=== PATIENT | female | born 1940 | race Caucasian/White ===

== ENCOUNTER → 2017-04-14 | Outpatient (CLI) | payer MEDICARE ==
[2017-04-14 11:52] LABS: Non-African American GFR(MDRD) >60 (>60 ml/min/1.73 sqM)
== END ==
LOC: LABWHC1 10:42
PROVIDERS: ATTEND Family Medicine
DX: Z13.9 Encounter for screening, unspecified (principal)
CPT/HCPCS: 36415; 82565

== ENCOUNTER → 2017-04-16 | Outpatient (CLI) | payer MEDICARE ==
--- NOTE | 2017-04-16 12:53 | MR ---
EXAMINATION TYPE: MR neck wo/w con DATE OF EXAM: 04/16/2017 COMPARISON: NONE HISTORY: Localized swelling, mass and lump, neck rt side, Marked area of interest, Patient has histor y of Rheumatoid Arthritis CONTRAST: Standard multiplanar, multisequence MRI departmental protocol utilizing 10 mL intravenous MultiHance gadolinium contrast. FINDINGS: A vitamin E marker is placed at area of clinical concern posterior right neck on axial imag e 24 and coronal image 17. No worrisome solid or cystic mass or fluid collection is seen at this leve l. No suspicious enhancement is seen. Patient has very little subcutaneous fat making evaluation subo ptimal. Visualized portion of brain parenchyma shows posterior CSF prominence could reflect arachnoid cyst. There is heterogeneous slightly enlarged thyroid gland particularly right thyroid lobe. Correlate for diffuse goiter. There is underlying scoliosis in the cervical thoracic spine with exaggerated curvature in the upper thoracic levels. IMPRESSION: No suspicious finding is seen to account for patient's symptoms.
== END | disposition home or self-care (01) ==
LOC: RADMRIMAIN 11:18
PROVIDERS: ATTEND Family Medicine
DX: R22.1 Localized swelling, mass and lump, neck (principal)
CPT/HCPCS: 70543; A9577

== ENCOUNTER 2017-12-11 14:17 | Emergency (ER) | payer MEDICARE ==
[2017-12-11 14:34] VITALS: RESP 16
--- NOTE | 2017-12-11 15:22 | ED ---
Neuro HPI - General Chief Complaint: Neuro Symptoms/Deficit Stated Complaint: Facial Droop Source: patient Mode of arrival: wheelchair Limitations: no limitations - History of Present Illness Is the patient presenting with stroke symptoms?: Yes Last Known Well Date: 12/08/17 Initial Comments: Patient is a 77-year-old female presenting for neurologic complaints. Patient states that 2 weeks ago she developed shingles and was started on shingles. Approximately 3 days ago, she thinks that she started having right-sided facial droop. She presents today because she was concerned because she states that she could not open her left eye and this morning, she was drinking coffee and she noted that the coffee was falling out of her mouth. She states that she has numbness on the left side of her face but the facial droop is on the right side. She also states that she has no obvious trouble speaking but feels like her tongue and left side of her face were numb. She also admits a very mild headache but no nausea/vomiting/diarrhea or chest pain or shortness breath. Location: speech, right face, dysarthria History of same: No Place: home Quality: weak, numb Improves With: none Worsens With: none On Anticoagulants: No Context: sudden onset Associated Symptoms: denies other symptoms Treatments Prior to Arrival: none - Related Data Home Medications: Home Medications Medication Instructions Recorded Confirmed Cholecalciferol [Vitamin D3] 1,000 units PO DAILY 11/20/14 12/11/17 Fish Oil/Dha/Epa [Fish Oil 1,200 1 tab PO DAILY 11/20/14 12/11/17 mg Fish Oil] Magnesium 200 mg PO DAILY 11/20/14 12/11/17 Ubidecarenone [Co Q-10] 1 tab PO DAILY 11/20/14 12/11/17 Acetylcysteine [Nac] 500 mg PO DAILY 12/11/17 12/11/17 Alpha Lipoic Acid 50 mg PO DAILY 12/11/17 12/11/17 Gabapentin [Neurontin] See Taper PO DIRECTED 12/11/17 12/11/17 Allergies/Adverse Reactions: Allergies Allergy/AdvReac Type Severity Reaction Status Date / Time Latex, Natural Rubber Allergy Rash/Hives Verified 12/11/17 15:49 nickel Allergy Rash/Hives Verified 12/11/17 15:49 Review of Systems ROS Statement: Those systems with pertinent positive or pertinent negative responses have been documented in the HPI. Constitutional: Negative for chills, fatigue and fever. HENT: Negative for congestion. Respiratory: Negative for chest tightness, shortness of breath and wheezing. Cardiovascular: Negative for chest pain and palpitations. Gastrointestinal: Negative for abdominal pain. Negative for abdominal distention , diarrhea, nausea and vomiting. Genitourinary: Negative for dysuria. Musculoskeletal: Negative for back pain, neck pain and neck stiffness. Skin: Negative for color change. Neurological: Negative for dizziness, speech difficulty, weakness and light- headedness. Positive for right sided facial droop. Positive for dysarthria. Negative for headache Psychiatric/Behavioral: Negative for agitation and confusion. The patient is not nervous/anxious. ROS Other: All systems not noted in ROS Statement are negative. General Exam - General Exam Comments Initial Comments: Physical Exam Constitutional: Pt is oriented to person, place, and time. Pt appears well- developed and well-nourished. No distress. HENT: Head: Normocephalic and atraumatic. Eyes: EOM are normal. Neck: Normal range of motion. Neck supple. Cardiovascular: Normal rate, regular rhythm, S1 normal, S2 normal and normal heart sounds. Exam reveals no gallop and no friction rub. No murmur heard. Pulmonary/Chest: Effort normal and breath sounds normal. No tachypnea and no bradypnea. No respiratory distress. No wheezes or rales noted. Abdominal: Soft. Bowel sounds are normal. Pt exhibits no shifting dullness, no distension, no pulsatile liver, no fluid wave, no abdominal bruit and no ascites. There is no tenderness. There is no rigidity, no rebound, no guarding, no tenderness at McBurney's point and negative Humphreys's sign. Musculoskeletal: Normal range of motion. Neurological: Pt is alert and oriented to person, place, and time. There is drooping of the right forehead and right lower face. There is no evidence of dysarthria. Remaining cranial nerves are intact. There is no decreased strength of opening of the left eyelid but there is decreased strength of opening the right Skin: Skin is warm and dry. No rash noted. Pt is not diaphoretic. No erythema. No pallor. Psychiatric: Pt has a normal mood and affect. Pt behavior is normal. Thought content normal. Limitations: no limitations Stroke MDM - Lab Data Result diagrams: 12/11/17 15:41 12/11/17 15:41 Lab Results 12/11/17 12/11/17 12/11/17 Range/Units 15:41 15:41 15:41 WBC 7.8 (3.8-10.6) k/uL RBC 4.78 (3.80-5.40) m/uL Hgb 14.1 (11.4-16.0) gm/dL Hct 43.6 (34.0-46.0) % MCV 91.2 (80.0-100.0) fL MCH 29.5 (25.0-35.0) pg MCHC 32.3 (31.0-37.0) g/dL RDW 13.0 (11.5-15.5) % Plt Count 312 (150-450) k/uL Neutrophils % 71 % Lymphocytes % 21 % Monocytes % 4 % Eosinophils % 2 % Basophils % 1 % Neutrophils # 5.5 (1.3-7.7) k/uL Lymphocytes # 1.6 (1.0-4.8) k/uL Monocytes # 0.3 (0-1.0) k/uL Eosinophils # 0.1 (0-0.7) k/uL Basophils # 0.0 (0-0.2) k/uL PT (9.0-12.0) sec INR (<1.2) APTT (22.0-30.0) sec Sodium 142 (137-145) mmol/L Potassium 4.6 (3.5-5.1) mmol/L Chloride 103 (98-107) mmol/L Carbon Dioxide 28 (22-30) mmol/L Anion Gap 11 mmol/L BUN 17 (7-17) mg/dL Creatinine 0.70 (0.52-1.04) mg/dL Est GFR (MDRD) Af Amer >60 (>60 ml/min/1.73 sqM) Est GFR (MDRD) Non-Af >60 (>60 ml/min/1.73 sqM) Glucose 100 H (74-99) mg/dL Calcium 9.7 (8.4-10.2) mg/dL Total Bilirubin 0.5 (0.2-1.3) mg/dL AST 19 (14-36) U/L ALT 17 (9-52) U/L Alkaline Phosphatase 74 (38-126) U/L Total Creatine Kinase 27 L (30-135) U/L CK-MB (CK-2) 0.4 (0.0-2.4) ng/mL CK-MB (CK-2) Rel Index 1.5 Troponin I <0.012 (0.000-0.034) ng/mL Total Protein 7.0 (6.3-8.2) g/dL Albumin 4.2 (3.5-5.0) g/dL 12/11/17 Range/Units 15:41 WBC (3.8-10.6) k/uL RBC (3.80-5.40) m/uL Hgb (11.4-16.0) gm/dL Hct (34.0-46.0) % MCV (80.0-100.0) fL MCH (25.0-35.0) pg MCHC (31.0-37.0) g/dL RDW (11.5-15.5) % Plt Count (150-450) k/uL Neutrophils % % Lymphocytes % % Monocytes % % Eosinophils % % Basophils % % Neutrophils # (1.3-7.7) k/uL Lymphocytes # (1.0-4.8) k/uL Monocytes # (0-1.0) k/uL Eosinophils # (0-0.7) k/uL Basophils # (0-0.2) k/uL PT 10.1 (9.0-12.0) sec INR 1.0 (<1.2) APTT 23.6 (22.0-30.0) sec Sodium (137-145) mmol/L Potassium (3.5-5.1) mmol/L Chloride (98-107) mmol/L Carbon Dioxide (22-30) mmol/L Anion Gap mmol/L BUN (7-17) mg/dL Creatinine (0.52-1.04) mg/dL Est GFR (MDRD) Af Amer (>60 ml/min/1.73 sqM) Est GFR (MDRD) Non-Af (>60 ml/min/1.73 sqM) Glucose (74-99) mg/dL Calcium (8.4-10.2) mg/dL Total Bilirubin (0.2-1.3) mg/dL AST (14-36) U/L ALT (9-52) U/L Alkaline Phosphatase (38-126) U/L Total Creatine Kinase (30-135) U/L CK-MB (CK-2) (0.0-2.4) ng/mL CK-MB (CK-2) Rel Index Troponin I (0.000-0.034) ng/mL Total Protein (6.3-8.2) g/dL Albumin (3.5-5.0) g/dL - Medical Decision Making Laboratory studies revealed that there is no significant electrolyte derangements and glucose was 100. Cardiac evaluation also showed the troponin was unremarkable and EKG was in significant for acute pathology. However, the patient's symptoms are concerning as she is having new left-sided facial symptoms but because she is out of the window for TPA, stroke was not initiated. 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 Per radiology, CT of the head showed: Focal hypodensity in the ventral Mattila likely secondary to the skull base artifact and a subacute to chronic brainstem infarct is considerably less likely. Explained all labs and diagnostic test results and that we will admit patient to hospital. Pt is agreeable to plan and case has been discussed with Dr. Chambers and they agree to accept the pt. 12/11/17 15:57 EKG shows normal sinus rhythm with a heart rate of 74 bpm. TX interval 1:30, QRS 86, QTC 448. There is no significant ST depressions or elevations there is non-specific T wave inversion in V1. Past Medical History Past Medical History: Asthma, Rheumatoid Arthritis (RA) Additional Past Medical History / Comment(s): constant "sick feeling in stomach " History of Any Multi-Drug Resistant Organisms: C-DIFF Date of last positivie culture/infection: 06/2014 MDRO Source:: CDIFF Past Surgical History: Orthopedic Surgery Additional Past Surgical History / Comment(s): bilateral feet surgery from horse riding accident, hand operation related to rheumatoid nodule, left arm fx- plate, I&D, Past Anesthesia/Blood Transfusion Reactions: No Reported Reaction Past Psychological History: No Psychological Hx Reported Smoking Status: Former smoker Past Alcohol Use History: None Reported Past Drug Use History: None Reported - Past Family History Mother Family Medical History: No Reported History Course Vital Signs 12/11/17 12/11/17 12/11/17 14:23 15:00 16:36 Temperature 97.5 F L Pulse Rate 82 75 70 Respiratory 16 16 16 Rate Blood Pressure 142/86 126/74 140/78 O2 Sat by Pulse 99 99 100 Oximetry Disposition Clinical Impression: Facial weakness Disposition: ADMITTED IP TO THIS [facility] Condition: Good Referrals: Ramone Roberts DO [Primary Care Provider] - 1-2 days Decision to Admit Reason: Admit from EC Decision Date: 12/11/17 Decision Time: 17:03
[2017-12-11 16:00] LABS: Basophils % (A) 1 %; Eosinophils # (A) 0.1 k/uL (0-0.7); Eosinophils % (A) 2 %; HCT 43.6 % (34.0-46.0); HGB 14.1 gm/dL (11.4-16.0); Lymphocytes # (A) 1.6 k/uL (1.0-4.8); Lymphocytes % (A) 21 %; MCH 29.5 pg (25.0-35.0); MCHC 32.3 g/dL (31.0-37.0); MCV 91.2 fL (80.0-100.0); Mean Platelet Volume 7.3; Monocytes # (A) 0.3 k/uL (0-1.0); Monocytes % (A) 4 %; Neutrophils # (A) 5.5 k/uL (1.3-7.7); Neutrophils % (A) 71 %; Platelet Count 312 k/uL (150-450); RBC 4.78 m/uL (3.80-5.40); WBC 7.8 k/uL (3.8-10.6)
--- NOTE | 2017-12-11 16:12 | CT ---
EXAMINATION TYPE: CT brain wo con DATE OF EXAM: 12/11/2017 COMPARISON: NONE HISTORY: 77-year-old female Deficits, Right sided facial droop without weakness TECHNIQUE: Examination was done in axial plane without intravenous contrast. Coronal and sagittal r econstructions performed. CT DLP: 1144.7 mGycm Automated exposure control for dose reduction was used. FINDINGS: There is no evidence of acute intracranial hemorrhage, acute ischemic changes, mass, mass-effect, or extra-axial fluid collection. There is no effacement of cerebral sulci or basal subarachnoid cister ns. There is no hydrocephalus. There is no midline shift. Walker-white matter distinction is preserv ed. 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 The cerebellar tonsils are identified. Patchy hypodensity within the ventral medulla on axial image 11 probably skull base artifact. Promine nt perivascular space or lacunar infarct in the left basal ganglia. Paranasal sinuses and mastoid air cells are well pneumatized. Orbits and globes are intact. IMPRESSION: 1. Focal hypodensity in the ventral medulla likely secondary to skull base artifact. A subacute to ch ronic brainstem infarct is considered less likely. If indicated, MRI could be performed. 2. Incidental large megacisterna magna. 3. Otherwise, no acute intracranial abnormality seen. 2.
[2017-12-11 16:15] LABS: ALT 17 U/L (9-52); AST 19 U/L (14-36); Albumin 4.2 g/dL (3.5-5.0); Alkaline Phosphatase 74 U/L (38-126); Anion Gap 11 mmol/L; Blood Urea Nitrogen 17 mg/dL (7-17); Calcium 9.7 mg/dL (8.4-10.2); Carbon Dioxide 28 mmol/L (22-30); Chloride 103 mmol/L (98-107); Creatine Kinase 27 U/L (30-135); Glucose 100 mg/dL (74-99); Potassium 4.6 mmol/L (3.5-5.1); Sodium 142 mmol/L (137-145); Total Bilirubin 0.5 mg/dL (0.2-1.3)
[2017-12-11 16:26] LABS: Creatine Kinase MB 0.4 ng/mL (0.0-2.4); Troponin I <0.012 ng/mL (0.000-0.034)
[2017-12-11 16:35] LABS: Partial Thromboplastin Time 23.6 sec (22.0-30.0); Prothrombin Time 10.1 sec (9.0-12.0)
[2017-12-11] MEDS ORDERED: NALOXONE 0.4 MG/ML 1 ML VIAL IV PRN (17:04)
[2017-12-11] MEDS ORDERED: ASPIRIN 325 MG TAB PO STA (17:08)
--- NOTE | 2017-12-11 18:01 | ED ---
Medical Decision Making - Medical Decision Making Patient was reevaluated by myself at 5:40 PM today and the patient states that the problem appears to be right-sided. Patient also states that she would like to go home and she is sure that this is not a stroke.. She states that she drank a drink of water and that the water was coming out of her right side of her mouth and on her left,. Patient was evaluated bedside by Dr. 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 Physical exam findings of right-sided upper and lower facial droop are consistent with this and patient now denies any of the symptoms are on the left side. It is felt that the patient is stable to be discharged home with close follow-up to urology. Patient will be given a prescription for steroids as well as antivirals. - Lab Data Result diagrams: 12/11/17 15:41 12/11/17 15:41 Lab Results 12/11/17 12/11/17 12/11/17 Range/Units 15:41 15:41 15:41 WBC 7.8 (3.8-10.6) k/uL RBC 4.78 (3.80-5.40) m/uL Hgb 14.1 (11.4-16.0) gm/dL Hct 43.6 (34.0-46.0) % MCV 91.2 (80.0-100.0) fL MCH 29.5 (25.0-35.0) pg MCHC 32.3 (31.0-37.0) g/dL RDW 13.0 (11.5-15.5) % Plt Count 312 (150-450) k/uL Neutrophils % 71 % Lymphocytes % 21 % Monocytes % 4 % Eosinophils % 2 % Basophils % 1 % Neutrophils # 5.5 (1.3-7.7) k/uL Lymphocytes # 1.6 (1.0-4.8) k/uL Monocytes # 0.3 (0-1.0) k/uL Eosinophils # 0.1 (0-0.7) k/uL Basophils # 0.0 (0-0.2) k/uL PT (9.0-12.0) sec INR (<1.2) APTT (22.0-30.0) sec Sodium 142 (137-145) mmol/L Potassium 4.6 (3.5-5.1) mmol/L Chloride 103 (98-107) mmol/L Carbon Dioxide 28 (22-30) mmol/L Anion Gap 11 mmol/L BUN 17 (7-17) mg/dL Creatinine 0.70 (0.52-1.04) mg/dL Est GFR (MDRD) Af Amer >60 (>60 ml/min/1.73 sqM) Est GFR (MDRD) Non-Af >60 (>60 ml/min/1.73 sqM) Glucose 100 H (74-99) mg/dL Calcium 9.7 (8.4-10.2) mg/dL Total Bilirubin 0.5 (0.2-1.3) mg/dL AST 19 (14-36) U/L ALT 17 (9-52) U/L Alkaline Phosphatase 74 (38-126) U/L Total Creatine Kinase 27 L (30-135) U/L CK-MB (CK-2) 0.4 (0.0-2.4) ng/mL CK-MB (CK-2) Rel Index 1.5 Troponin I <0.012 (0.000-0.034) ng/mL Total Protein 7.0 (6.3-8.2) g/dL Albumin 4.2 (3.5-5.0) g/dL 12/11/17 Range/Units 15:41 WBC (3.8-10.6) k/uL RBC (3.80-5.40) m/uL Hgb (11.4-16.0) gm/dL Hct (34.0-46.0) % MCV (80.0-100.0) fL MCH (25.0-35.0) pg MCHC (31.0-37.0) g/dL RDW (11.5-15.5) % Plt Count (150-450) k/uL Neutrophils % % Lymphocytes % % Monocytes % % Eosinophils % % Basophils % % Neutrophils # (1.3-7.7) k/uL Lymphocytes # (1.0-4.8) k/uL Monocytes # (0-1.0) k/uL Eosinophils # (0-0.7) k/uL Basophils # (0-0.2) k/uL PT 10.1 (9.0-12.0) sec INR 1.0 (<1.2) APTT 23.6 (22.0-30.0) sec Sodium (137-145) mmol/L Potassium (3.5-5.1) mmol/L Chloride (98-107) mmol/L Carbon Dioxide (22-30) mmol/L Anion Gap mmol/L BUN (7-17) mg/dL Creatinine (0.52-1.04) mg/dL Est GFR (MDRD) Af Amer (>60 ml/min/1.73 sqM) Est GFR (MDRD) Non-Af (>60 ml/min/1.73 sqM) Glucose (74-99) mg/dL Calcium (8.4-10.2) mg/dL Total Bilirubin (0.2-1.3) mg/dL AST (14-36) U/L ALT (9-52) U/L Alkaline Phosphatase (38-126) U/L Total Creatine Kinase (30-135) U/L CK-MB (CK-2) (0.0-2.4) ng/mL CK-MB (CK-2) Rel Index Troponin I (0.000-0.034) ng/mL Total Protein (6.3-8.2) g/dL Albumin (3.5-5.0) g/dL Disposition Clinical Impression: Perez's palsy Disposition: HOME SELF-CARE Condition: Good Instructions: Perez Palsy (ED) Prescriptions: predniSONE 50 mg PO DAILY #5 tablet valACYclovir HCL [Valacyclovir] 1,000 mg PO Q8HR 10 Days #30 tab Referrals: Ramone Roberts DO [Primary Care Provider] - 1-2 days Toro King MD [STAFF PHYSICIAN] - 1-2 days Time of Disposition: 18:02
[2017-12-11 18:36] VITALS: BP 130/70; PULSE 78; TEMP 98.7
--- NOTE | 2017-12-11 19:07 | CONS ---
CONSULTATION DATE OF SERVICE: 12/11/2017 REASON FOR CONSULTATION: Advice regarding weakness of the left side of the face and other medical issues requested by ER physician. HISTORY OF PRESENT ILLNESS: This is a 77-year-old woman with a past history of asthma, rheumatoid arthritis, history of C. diff., being followed by Dr. Ramone Roberts in the outpatient setting, was not feeling well for the last 2 weeks. Patient had shingles affecting multiple dermatomes on the right neck, C2-C3. The patient was taking Valtrex, but for the last 2 days, patient noted weakness to the left side of the face and was drooling, but this morning the patient apparently spilled fluid from the left side more than the right side and the patient was concerned and the patient came to [facility] and was evaluated in the ER for further evaluation and treatment. The brain CT scan was done which showed artifact and large rhianna cisterna magna was noted and there is no history of fever, rigors, chills. No history of headache, loss of consciousness, seizures. PAST MEDICAL HISTORY: History of asthma, rheumatoid arthritis, history of C. diff., history of DJD. MEDICATIONS PRIOR TO ADMISSION: Include: 1. Coenzyme Q 1 tablet p.o. daily. 2. Magnesium 200 mg p.o. daily. 3. Neurontin as taper. 4. Fish oil 1 p.o. daily. 5. Vitamin D3 1000 daily. 6. Alpha-lipoic acid 50 mg p.o. daily. 8. Valtrex 100 mg p.o. q.i.d. 9. Prednisone daily. ALLERGIES: Are LATEX and NICKEL. FAMILY HISTORY: No history of heart disease or strokes family. SOCIAL HISTORY: Patient worked as a nursing home social worker. Occasional alcohol intake. Previous history of smoking. No history of current smoking. REVIEW OF SYSTEMS: ENT: Mentioned earlier. CARDIOVASCULAR: No angina, palpitations. RESPIRATORY: No cough. GI: No nausea or vomiting. : No dysuria. NERVOUS: As mentioned earlier. ALLERGY/IMMUNOLOGY: No asthma or hay fever. MUSCULOSKELETAL: As mentioned earlier. HEMATOLOGY/ONCOLOGY: No history of anemia. ENDOCRINE: No history of diabetes, hypothyroidism. CONSTITUTIONAL: As mentioned earlier. DERMATOLOGY: Negative. RHEUMATOLOGY: Negative. PSYCHIATRY: As mentioned earlier. PHYSICAL EXAMINATION: Alert oriented x3. Pulse is 82, blood pressure 142/86, respirations 16, temperature 97.4, pulse ox 99% on room air. HEENT: Conjunctivae normal. Oral mucosa moist. NECK: No jugular venous distention. No carotid bruits. No lymph node enlargement. CARDIOVASCULAR: S1, S2 muffled. RESPIRATORY: Breath sounds diminished in the bases. No rhonchi. No crackles. ABDOMEN: Soft, nontender. No mass palpable. LEGS: No edema. No swelling. NERVOUS SYSTEM: Higher functions as mentioned earlier. Facial flattening of the left side of the face present and Perez sign is present. Otherwise, wrinkling of the forehead and occasional movement of the left side, indicating lower motor neuron facial palsy on the left side. Otherwise, moves all other 4 limbs and power is normal. No signs of cerebellar dysfunction. SKIN: Healing herpes zoster lesions on the right C1-C3 segments and other joints, no acute deforming arthropathy. LYMPHATIC: No lymphadenopathy in neck or axillae. LAB STUDIES: CBC within normal limits. Glucose 100. Creatine kinase 27. ASSESSMENT: 1. 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 2. Recent herpes zoster right C1-C3 dermatomes. 3. History of asthma. 4. History of rheumatoid arthritis. 5. History of Clostridium difficile. 6. History of degenerative joint disease. RECOMMENDATION AND DISCUSSION: In this 77-year-old woman who presented with multiple complex medical issues, at this time I recommend to continue the current medical management and symptomatic treatment. Clinically, patient had classical features of Perez palsy. I would recommend the continuation of antiviral medication as well as a short course of steroids and follow up with Neurology as well as Dr. Roberts. The patient is extremely keen on going home at this time. I will instruct the patient to seek emergency room help or 911 in case any changes in neurological status. Otherwise, further followup and evaluation, including MRI as an outpatient. I discussed with ER physician. Discussed with the patient and family, who understand and agree. Further recommendations to follow. MMODL / IJN: [id number] / COURTNEY
== END 2017-12-11 18:35 | disposition home or self-care (01) ==
LOC: EC 14:17 → 6SEL 17:08 → UNDOADMIN 17:08 → EC 18:35
DX: G51.0 Bell's palsy (principal); Z87.891 Personal history of nicotine dependence; Z79.899 Other long term (current) drug therapy; Z91.040 Latex allergy status; Z91.048 Other nonmedicinal substance allergy status
CPT/HCPCS: 36415; 70450; 80053; 82550; 82553; 84484; 85025; 85610; 85730; 93005; 99285

== ENCOUNTER 2018-03-14 09:48 | Day surgery (SDC) | payer MEDICARE ==
[2018-03-08 16:11] VITALS: BMI 18.8
[~2018-03-14 09:48] MED LIST: LACTATED RINGERS 1,000 ML IV SCH; LIDOCAINE 1% 20 ML VIAL (10MG/ML) FOR IV START INTRADERMA PRN; MORPHINE SULFATE 2 MG/ML SYRINGE IV PRN; MORPHINE SULFATE 4 MG/ML SYRINGE IV PRN; ONDANSETRON 4 MG/2 ML VIAL IVP ONE; Pre Op ABX Message 1 EACH MISC MISCELLANE ONE; VANCOMYCIN 750 MG in SODIUM CHLORIDE 0.9% 250 ML IVPB ONE
[2018-03-14 10:18] VITALS: TEMP 97.6
[2018-03-14] MEDS ORDERED: LIDOCAINE 2% INJ 20 MG/ML SQ ONE ×2 (12:43→12:58)
[2018-03-14] MEDS ORDERED: BUPIVACAINE (PF) 0.5% 30 ML VIAL INTRAARTIC ONE ×2 (12:43→12:58)
[2018-03-14] MEDS ORDERED: methylPREDNISolone ACETATE 40 MG/ML 1 ML VIAL INTRAARTIC ONE ×2 (12:44→12:58)
[2018-03-14] MEDS ORDERED: MIDAZOLAM 2 MG/2 ML VIAL IV ONE (12:45)
[2018-03-14] MEDS ORDERED: fentaNYL (PF) 50 MCG/ML 2 ML AMP ONE (12:52)
[2018-03-14] MEDS ORDERED: PROPOFOL 10 MG/ML 20 ML VIAL IV ONE (12:52)
[2018-03-14] MEDS ORDERED: MIDAZOLAM 2 MG/2 ML VIAL ONE (12:52)
[2018-03-14] MEDS ORDERED: LIDOCAINE 1% INJ 10MG/ML (20 ML MDV) ONE (12:52)
--- NOTE | 2018-03-14 12:54 | P.ONQ ---
Anesthesiology Proc Note - PNB - Peripheral Nerve Block Performed Left Axillary Single Indication: Acute Post-Operative Pain, Analgesia Sedation Type: Sedate with meaningful contact maintained Preparation: Sterile Prep Position: Supine Catheter: None Needle Types: Other (see comment) (Rajeev) Needle Size: 50mm (2") Needle Gauge: 21 Technique: Ultrasound Injectate: 0.5% Ropivacaine (see comment for volume) (27 cc) Blood Aspirated: No Pain Paresthesia on Injection Noted: No Resistance on Injection: Normal Events: Uneventful and Well Tolerated
[2018-03-14] MEDS ORDERED: HYDROcodone/APAP 10-325MG 1 EACH TAB PO ONE (14:15)
[2018-03-14 14:30] VITALS: BP 116/72; PULSE 65; RESP 18
--- NOTE | 2018-03-18 15:29 | OP ---
OPERATIVE REPORT PROCEDURE DATE: 03/14/2018 PREOPERATIVE DIAGNOSIS: Osteoarthritis MP joints, left index and middle fingers. FINAL DIAGNOSIS: Osteoarthritis MP joints, left index and middle fingers. PROCEDURE: Silastic arthroplasty MP joints, left index and middle fingers. GROSS PATHOLOGY: A size 5 implant was used in the index finger and a size 4 in the middle. These were Dugan flex pressley finger joints produced by [employer]. PROCEDURE DESCRIPTION: This 78-year-old was taken to operative suite after undergoing an axillary block in the preop holding area by Department of Anesthesia. The left arm and hand were prepped and draped in the usual manner. They were elevated, exsanguinated, cuff inflated to 250 mmHg. The following procedure was done sequentially for both the index and middle fingers in an identical manner. A transverse incision was made over the metacarpal head. Most of the longitudinal vessels were allowed to fall into the valleys. The extensor mechanism was identified and released on its ulnar aspect. This was followed by an ulnar intrinsic release of the proximal phalanx. The extensor mechanism was then dissected and reflected on a radial manner exposing the capsule. The capsule was incised longitudinally, exposing the joint. Minimal release of the collateral ligaments was performed. An osteotomy of the metacarpal head was done with an oscillating saw. A rongeur was used to clean out the joint of residual synovium. The supporting structures were in good shape. An awl was then used to begin the intramedullary canals of both the proximal phalanx and metacarpal. This was followed by use of a Dugan bur to begin opening the canals. Subsequent larger rasps were then used to gradually increase the canal in preparation for the prosthesis. A size 5 prosthesis fit best for the index and size 4 fit best for the middle. The joint was then thoroughly irrigated with antibiotic solution. The real prosthesis was then inserted using no-touch technique. The capsule was closed with 4-0 PDS suture. The extensor mechanism was allowed to fall into place and was secured by itself. As stated above, this was done independently for both the index and middle fingers. At the completion of the procedure, tourniquet was released and hemostasis acquired with electrocautery and pressure. The wounds were thoroughly irrigated and closed with 5-0 nylon suture. Soft bulky dressing was then applied with protective support holding the index and middle fingers in a slightly more radial direction for healing of collateral ligaments and capsule. The patient was then taken recovery room in satisfactory condition. MMODL / IJN: [id number] /
== END 2018-03-14 15:06 | disposition home or self-care (01) ==
LOC: OR 09:48
PROVIDERS: ATTEND Orthopaedic Surgery Hand Surgery
DX: M19.042 Primary osteoarthritis, left hand (principal); J45.909 Unspecified asthma, uncomplicated; M81.0 Age-related osteoporosis without current pathological fracture; M06.9 Rheumatoid arthritis, unspecified; M35.00 Sjogren syndrome, unspecified; Z79.899 Other long term (current) drug therapy; Z91.040 Latex allergy status; Z91.048 Other nonmedicinal substance allergy status; Z87.891 Personal history of nicotine dependence
CPT/HCPCS: 64417; 26531 ×2; J2001 ×2; J2250; J3370; J1030; J2405; J3010; J2704

== ENCOUNTER 2018-09-12 09:46 | Day surgery (SDC) | payer MEDICARE ==
[2018-09-08 16:24] VITALS: BMI 18.4
[~2018-09-12 09:46] MED LIST changes: +DEXAMETHASONE SOD PHOSPHATE 10 MG/ML 1 ML VIAL IV ONE; +HYDROmorphone 0.5 MG/0.5 ML SYRINGE IVP PRN; -LIDOCAINE 1% 20 ML VIAL (10MG/ML) FOR IV START INTRADERMA PRN; -MORPHINE SULFATE 2 MG/ML SYRINGE IV PRN; -MORPHINE SULFATE 4 MG/ML SYRINGE IV PRN; -Pre Op ABX Message 1 EACH MISC MISCELLANE ONE; +VANCOMYCIN 1,000 MG in SODIUM CHLORIDE 0.9% 250 ML IVPB ONE; -VANCOMYCIN 750 MG in SODIUM CHLORIDE 0.9% 250 ML IVPB ONE
[2018-09-12 10:47] VITALS: RESP 16; TEMP 99.6
[2018-09-12] MEDS ORDERED: LIDOCAINE 1% 20 ML VIAL (10MG/ML) FOR IV START INTRADERMA ONE (10:59)
[2018-09-12] MEDS: MIDAZOLAM 2 MG/2 ML VIAL IV PRN ×2 (12:16→12:18)
[2018-09-12] MEDS ORDERED: ROPIVACAINE 5 MG/ML 30 ML VIAL ONE (13:20)
[2018-09-12] MEDS ORDERED: PROPOFOL 10 MG/ML 20 ML VIAL IV ONE (13:20)
[2018-09-12 14:49] VITALS: BP 122/65; PULSE 62
--- NOTE | 2018-09-12 16:51 | OP ---
OPERATIVE REPORT DATE OF SURGERY: 09/12/2018. PREOPERATIVE DIAGNOSIS: Osteoarthritis MP joint right index finger. FINAL DIAGNOSIS: Osteoarthritis MP join right index finger. PROCEDURE PERFORMED: MP arthroplasty, right index finger. GROSS PATHOLOGY: A size #5 [employer] silastic prosthesis was used quite effectively. There was no need for the grommets. DESCRIPTION OF PROCEDURE: This 78-year-old woman was taken to the operative suite and given IV sedation to supplement an axillary block given by Department of Anesthesia in the preop holding area, which worked well. The hand was prepped and draped in usual manner. It was elevated, exsanguinated. Cuff was inflated to 250 mmHg. Note that preoperative IV antibiotics were given in a timely manner. The transverse incision was made over the MP joint of the right index finger. Dissection was taken through the skin and subcutaneous tissue in a blunt manner to protect any longitudinally traversing nerves and vessels. The extensor castano was dissected, identified and was released on the ulnar aspect. This was extended to include the ulnar intrinsic release. The extensor mechanism was then reflected radially exposing the dorsal capsule. This was incised longitudinally and partial collateral ligament release was performed. An oscillating saw was then used to resect the head of the 2nd metacarpal. The alignment was such that it was in a slight radial angulation to try to prevent some of the ulnar drift. A rongeur was then used to do synovectomy of the joint and expose both articular surfaces. An awl instrument was used to begin the intramedullary canal part of the procedure. Successfully larger rasps were then used to develop the intramedullary canals of both the proximal phalanx and the metacarpal. Size 5 was noted to fit best. The trial prosthesis was inserted to confirm the fit. The real prosthesis was then inserted, no-touch technique, after the wound had been thoroughly irrigated. The radial collateral ligament was released and reconstructed. A drill hole was made through distal 5th metacarpal head and the ligament was advanced and tightened to strengthen on the radial aspect. Further capsular closure was performed with 3-0 PDS suture. The extensor mechanism was then realigned by reaching the radial aspect. A small segment was excised and the supporting tissue was then secured with a 3-0 Vicryl suture. The tourniquet was then released and the wound was again thoroughly irrigated. Hemostasis satisfactory. The wound was closed with 5-0 nylon suture. Soft bulky dressing and protective plaster splint were then applied holding the finger in a mildly extended and radially deviated position. She was then taken to recovery room in satisfactory condition. HARRIET / VINAYAK: [id number] /
--- NOTE | 2018-09-14 10:31 | P.ONQ ---
Anesthesiology Proc Note - PNB - Peripheral Nerve Block Performed Right Axillary Single Procedure Start Time: 12:16 Procedure Stop Time: 12:23 Indication: Acute Post-Operative Pain, Dx/Pain Location (RIGHT HAND), Requested by physician (DR GREER) Sedation Type: Sedate with meaningful contact maintained (VERSED 4MG) Preparation: Sterile Prep Position: Supine Needle Types: Other (see comment) (TUTU) Needle Size: 50mm (2") Needle Gauge: 21 Technique: Ultrasound Injectate: 0.5% Ropivacaine (see comment for volume)
== END 2018-09-12 15:14 | disposition home or self-care (01) ==
LOC: OR 09:46
PROVIDERS: ATTEND Orthopaedic Surgery Hand Surgery
DX: M19.041 Primary osteoarthritis, right hand (principal); M65.831 Other synovitis and tenosynovitis, right forearm; M65.832 Other synovitis and tenosynovitis, left forearm; J45.909 Unspecified asthma, uncomplicated; M81.0 Age-related osteoporosis without current pathological fracture; M06.9 Rheumatoid arthritis, unspecified; M35.00 Sjogren syndrome, unspecified; Z91.040 Latex allergy status; Z91.09 Other allergy status, other than to drugs and biological substances; Z87.891 Personal history of nicotine dependence
CPT/HCPCS: 26536; C1713; J2250; J3370; J1100; J2405; J2795; J2704

== ENCOUNTER → 2019-03-23 | Outpatient (CLI) | payer MEDICARE ==
--- NOTE | 2019-03-24 11:19 | MM ---
Reason for exam: screening (asymptomatic). Last mammogram was performed 4 years and 9 months ago. History: Patient is postmenopausal. Family history of breast cancer in aunt at age 65 and breast cancer in uncle at age 78. Physical Findings: A clinical breast exam by your physician is recommended on an annual basis and results should be correlated with mammographic findings. MG 3D Screening Mammo W/Cad Bilateral CC and MLO view(s) were taken. Prior study comparison: July 03, 2014, bilateral MG screening mammo w CAD. June 28, 2013, bilateral digital screening mammo w/CAD. The breast tissue is heterogeneously dense. This may lower the sensitivity of mammography. There are benign appearing round dystrophic calcifications bilaterally, greater in the right breast. There is no discrete abnormality. ASSESSMENT: Benign, BI-RAD 2 RECOMMENDATION: Routine screening mammogram of both breasts in 1 year.
== END | disposition home or self-care (01) ==
LOC: RADMAMWWP 09:31
PROVIDERS: ATTEND Family Medicine
DX: Z12.31 Encounter for screening mammogram for malignant neoplasm of breast (principal)
CPT/HCPCS: 77063; 77067

== ENCOUNTER → 2020-08-12 | Outpatient (CLI) | payer MEDICARE ==
--- NOTE | 2020-08-12 17:17 | US ---
EXAMINATION TYPE: US thyroid st tissue head/neck DATE OF EXAM: 08/12/2020 COMPARISON: None CLINICAL HISTORY: 80-year-old female E04.1 THYROID NODULE. TECHNIQUE: Multiple sonographic images of the thyroid gland are obtained. FINDINGS: GLAND SIZE: Right Lobe: 5.4 x 2.2 x 2.5 cm Overall Parenchyma: heterogenous Left Lobe: 4.8 x 1.8 x 1.6 cm Overall Parenchyma: heterogeneous Isthmus Thickness: 0.9 cm NODULES RIGHT: # of nodules measured on right: 0 LEFT: # of nodules measured on left: 0 ISTHMUS: # of nodules measured in the isthmus: 0 Bilateral neck scanned, no evidence of lymphadenopathy. Bilateral diffusely heterogeneous thyroid glands IMPRESSION: Borderline to mild thyromegaly with diffuse glandular heterogeneity which could reflect goiter or dif fuse thyroiditis. No discrete nodules.
== END | disposition home or self-care (01) ==
LOC: RADUSWWP 16:04
PROVIDERS: ATTEND Otolaryngology
DX: E01.0 Iodine-deficiency related diffuse (endemic) goiter (principal); H93.3X9 Disorders of unspecified acoustic nerve; H93.12 Tinnitus, left ear; H91.92 Unspecified hearing loss, left ear; R53.83 Other fatigue; Z91.040 Latex allergy status
CPT/HCPCS: 76536

== ENCOUNTER → 2020-10-30 | Outpatient (CLI) | payer MEDICARE ==
--- NOTE | 2020-10-31 14:57 | MM ---
Reason for exam: screening (asymptomatic). Last mammogram was performed 1 year and 7 months ago. History: Patient is postmenopausal. Family history of breast cancer in aunt at age 65 and breast cancer in uncle at age 78. Physical Findings: A clinical breast exam by your physician is recommended on an annual basis and results should be correlated with mammographic findings. MG 3D Screening Mammo W/Cad Bilateral CC and MLO view(s) were taken. Prior study comparison: March 23, 2019, bilateral MG 3d screening mammo w/cad. July 03, 2014, bilateral MG screening mammo w CAD. The breast tissue is heterogeneously dense. This may lower the sensitivity of mammography. Focal asymmetry, changing, right CC view. This finding is changed when compared with previous exams. ASSESSMENT: Incomplete: need additional imaging evaluation, BI-RAD 0 RECOMMENDATION: Special view mammogram of the right breast. If lesion persists on supplemental views, image directed ultrasound is recommended. [facility] will attempt to contact patient to return for supplemental views and ultrasound if indicated.
== END | disposition home or self-care (01) ==
LOC: RADMAMWWP 11:29
PROVIDERS: ATTEND Family Medicine
DX: Z12.31 Encounter for screening mammogram for malignant neoplasm of breast (principal)
CPT/HCPCS: 77063; 77067

== ENCOUNTER → 2020-11-13 | Outpatient (CLI) | payer MEDICARE ==
--- NOTE | 2020-11-13 11:44 | MM ---
Reason for exam: additional evaluation requested from abnormal screening. Last mammogram was performed less than 1 month ago. History: Patient is postmenopausal. Family history of breast cancer in aunt at age 65 and breast cancer in uncle at age 78. Physical Findings: Nurse did not find any significant physical abnormalities on exam. MG 3D Work Up W/Cad RT Spot compression CC, spot compression MLO, and LM view(s) were taken of the right breast. Prior study comparison: October 30, 2020, bilateral MG 3d screening mammo w/cad. March 23, 2019, bilateral MG 3d screening mammo w/cad. There are scattered fibroglandular densities. There is no discrete abnormality including area of concern. These results were verbally communicated with the patient and result sheet given to the patient on 11/13/20. ASSESSMENT: Probably benign, BI-RAD 3 RECOMMENDATION: Follow-up diagnostic mammogram of the right breast in 6 months. Manage on a clinical basis with regard to pain.
== END | disposition home or self-care (01) ==
LOC: RADMAMWWP 10:14
PROVIDERS: ATTEND Family Medicine
DX: R92.8 Other abnormal and inconclusive findings on diagnostic imaging of breast (principal)
CPT/HCPCS: 77065; G0279; 77061

== ENCOUNTER → 2021-12-24 | Outpatient (CLI) | payer MEDICARE ==
--- NOTE | 2021-12-25 11:04 | MM ---
Reason for exam: additional evaluation requested from prior study. Last mammogram was performed 1 year and 1 month ago. History: Patient is postmenopausal. Family history of breast cancer in aunt at age 65 and breast cancer in uncle at age 78. Benign excisional biopsy, 2004. Physical Findings: A clinical breast exam by your physician is recommended on an annual basis and results should be correlated with mammographic findings. MG 3D Diag Mammo W/Cad JA Bilateral CC and MLO view(s) were taken. Prior study comparison: November 13, 2020, right breast MG 3d work up w/cad RT. October 30, 2020, bilateral MG 3d screening mammo w/cad. The breast tissue is heterogeneously dense. This may lower the sensitivity of mammography. Stable benign calcifications. There is no discrete abnormality. No significant new findings when compared with previous films. These results were verbally communicated with the patient and result sheet given to the patient on 12/24/21. ASSESSMENT: Benign, BI-RAD 2 RECOMMENDATION: Routine screening mammogram of both breasts in 1 year.
== END | disposition home or self-care (01) ==
LOC: RADMAMWWP 13:33
PROVIDERS: ATTEND Family Medicine
DX: N64.4 Mastodynia (principal)
CPT/HCPCS: 77066; G0279; 77062

== ENCOUNTER → 2022-08-27 | Outpatient (CLI) | payer MEDICARE | END | disposition home or self-care (01) | LOC: LABWHC1 11:34 | PROVIDERS: ATTEND Surgery Surgery of the Hand | DX: Z01.812 Encounter for preprocedural laboratory examination (principal); Z20.822 Contact with and (suspected) exposure to COVID-19; M05.7A Rheumatoid arthritis with rheumatoid factor of other specified site without organ or systems involvement | CPT/HCPCS: U0003; U0005 ==

== ENCOUNTER 2023-05-14 08:15 | Day surgery (SDC) | payer MEDICARE ==
[~2023-05-14 08:15] MED LIST changes: -DEXAMETHASONE SOD PHOSPHATE 10 MG/ML 1 ML VIAL IV ONE; -HYDROmorphone 0.5 MG/0.5 ML SYRINGE IVP PRN; +LIDOCAINE 1% (10MG/ML) FOR IV START INTRADERMA PRN; -ONDANSETRON 4 MG/2 ML VIAL IVP ONE; -VANCOMYCIN 1,000 MG in SODIUM CHLORIDE 0.9% 250 ML IVPB ONE
[2023-05-14 08:46] VITALS: TEMP 98.9
[2023-05-14] MEDS ORDERED: PROPOFOL 10 MG/ML 20 ML VIAL IV ONE (08:56)
--- NOTE | 2023-05-14 09:22 | P.PCN ---
Date of Procedure: 05/14/23 Procedure(s) Performed: BRIEF HISTORY: Patient is a 83-year-old pleasant white female scheduled for an elective colonoscopy as a part of screening for colon cancer. PROCEDURE PERFORMED: Colonoscopy with snare polypectomy. PREOPERATIVE DIAGNOSIS: Screening for colon cancer. IV sedation per Anesthesia. PROCEDURE: After informed consent was obtained, the patient, was brought into the endoscopy unit. IV sedation was administered by Anesthesia under continuous monitoring. Digital rectal examination was normal. Initially the Olympus CF-160 flexible video colonoscope was then inserted in the rectum, gradually advanced into the cecum without any difficulty. Careful examination was performed as the scope was gradually being withdrawn. Ileocecal valve and the appendiceal orifice were visualized and appeared normal. Prep was excellent. Mucosa of the cecum, ascending colon, transverse colon, descending colon, sigmoid colon, and rectum appeared normal. In the rectum there were 3 small polyps measuring between 4-5 mm in size and removed by snare polypectomy. Scattered sigmoid diverticulosis. Retroflexion was performed in the rectum and no lesions were seen. The patient tolerated the procedure well. IMPRESSION: 3 polyps in the rectum measuring between 4-5 mm in size, status post snare polyp rectum Scattered sigmoid diverticulosis RECOMMENDATIONS: Findings of this examination were discussed with the patient as well as a family. She was advised to follow with the biopsy results and based the biopsy results will plan a repeat colonoscopy if needed..
[2023-05-14 09:31] VITALS: PULSE 71
[2023-05-14 09:42] VITALS: BP 117/68; RESP 18
== END 2023-05-14 10:19 | disposition home or self-care (01) ==
LOC: ORWHC2ENDO 08:15
PROVIDERS: ATTEND Internal Medicine Gastroenterology
DX: Z12.11 Encounter for screening for malignant neoplasm of colon (principal); K62.1 Rectal polyp; K57.30 Diverticulosis of large intestine without perforation or abscess without bleeding; Z91.040 Latex allergy status
CPT/HCPCS: 88305; 45385; J2704

== ENCOUNTER → 2023-06-03 | Outpatient (CLI) | payer MEDICARE ==
--- NOTE | 2023-06-03 15:00 | US ---
EXAMINATION TYPE: US pelvis complete transvag DATE OF EXAM: 06/03/2023 COMPARISON: NONE CLINICAL INDICATION: Female, 83 years old with history of R10.2 PELVIC AND PERINEAL PAIN; pain TECHNIQUE: Transvaginal (TV) and Transabdominal (TA) . EXAM MEASUREMENTS: Uterus: 6.4 x 3.3 x 4.1 cm Endometrial Stripe: .5 cm 1. Uterus: Heterogenous with calcifications largest 1.4 x 1.2 cm. Possible fibroid seen measuring 2. 1 x 2.6 x 2.2 cm. 2. Endometrium: wnl 3. Right Ovary: Obscured by overlying bowel gas 4. Left Ovary: Obscured by overlying bowel gas 5. Bilateral Adnexa: wnl 6. Posterior cul-de-sac: wnl Heterogenous appearance of the uterus with dystrophic calcifications and fibroid identified along the anterior body. Endometrium is within normal limits. Both ovaries are obscured by overlying bowel gas . No free fluid identified. IMPRESSION: 1. No acute pelvic process. 2. Normal endometrial thickness. 3. Fibroid uterus. 4. Nonvisualization of both ovaries due to overlying bowel gas.
== END | disposition home or self-care (01) ==
LOC: RADUSWWP 13:33
PROVIDERS: ATTEND Family Medicine
DX: D25.9 Leiomyoma of uterus, unspecified (principal); R10.2 Pelvic and perineal pain
CPT/HCPCS: 76830; 76856

== ENCOUNTER → 2024-04-10 | Outpatient (CLI) | payer MEDICARE ==
--- NOTE | 2024-04-23 16:37 | MR ---
EXAMINATION TYPE: MR hand RT wo con DATE OF EXAM: 04/10/2024 COMPARISON: Radiograph 03/24/2024 HISTORY: 84-year-old female M79.641 Rt hand pain TECHNIQUE: Multiplanar, multisequence images of the right hand were obtained without IV contrast. FINDINGS: There are silicone arthroplasties present throughout the second through fifth MCP joints. Moderate degenerative change first MCP joint and severe at the first IP joint with associated joint e ffusions and prominent subchondral osseous edema. Additional pronounced subchondral marrow edema at the third PIP joint with capsular hypertrophy/synov itis. Possible early marginal erosion on coronal T1 image 6. Severe degenerative change noted at the radiocarpal joint with [id number] articulation and extensiv e subchondral marrow signal changes. Similar advanced degenerative change along the mid carpal compar tment. Moderate to severe degenerative change fourth and fifth CMC joints and moderate at the third C MC joint. No tenosynovitis is seen. IMPRESSION: 1. Previous silicone arthroplasties of the second through fifth MCP joints. 2. 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 3. At least moderate arthropathy also with extensive subchondral marrow edema at the first MCP joint, third through fifth CMC joints, and at the third PIP joint. Here at the third PIP joint, there may b e early marginal erosions. 4. Given the overall distribution, consider an inflammatory arthropathy/RA in the differential. 5. No tenosynovitis is seen.
== END | disposition home or self-care (01) ==
LOC: RADMRIMAIN 11:02
PROVIDERS: ATTEND Orthopaedic Surgery Hand Surgery
DX: M79.641 Pain in right hand (principal); R60.9 Edema, unspecified

== ENCOUNTER → 2024-05-08 | Outpatient (CLI) | payer MEDICARE ==
--- NOTE | 2024-05-08 16:43 | CA ---
Transthoracic Echo Report Name: Mary Bernard Age: 84 Gender: F : 1940 Exam Date: 05/08/2024 12:07 Exam Location: [facility] Ht (in): 66 Wt (lb): 125 Ordering Physician: Ramone Roberts DO Attending/Referring Phys: Truck Rental Clerk Nasreen Osborne RDCS Procedure CPT: Indications: R94.31 ABNORMAL EKG Cardiac Hx: Technical Quality: Good Contrast 1: Total Dose (mL): Contrast 2: Total Dose (mL): MEASUREMENTS (Male / Female) Normal Values 2D ECHO LV Diastolic Diameter PLAX 3.1 cm 4.2 - 5.9 / 3.9 - 5.3 cm LV Systolic Diameter PLAX 2.5 cm IVS Diastolic Thickness 1.1 cm 0.6 - 1.0 / 0.6 - 0.9 cm LVPW Diastolic Thickness 1.0 cm 0.6 - 1.0 / 0.6 - 0.9 cm LV Relative Wall Thickness 0.7 RV Internal Dim ED PLAX 2.3 cm LA Systolic Diameter LX 2.7 cm 3.0 - 4.0 / 2.7 - 3.8 cm LV Diastolic Volume MOD BP 39.9 cm??? 67 - 155 / 56 - 104 cm??? LV Systolic Volume MOD BP 16.5 cm??? 22 - 58 / 19 - 49 cm??? LV Ejection Fraction MOD BP 58.6 % >= 55 % LV Cardiac Index MOD BP 1054.4 cm???/min???m??? LV Diastolic Volume MOD 4C 44.0 cm??? LV Systolic Volume MOD 4C 15.2 cm??? LV Ejection Fraction MOD 4C 65.5 % LV Cardiac Index MOD 4C 1298.9 cm???/min???m??? LV Diastolic Length 4C 6.1 cm LV Systolic Length 4C 4.9 cm LV Diastolic Volume MOD 2C 32.9 cm??? LV Systolic Volume MOD 2C 17.7 cm??? LV Ejection Fraction MOD 2C 46.2 % LV Cardiac Index MOD 2C 684.3 cm???/min???m??? LV Diastolic Length 2C 5.6 cm LV Systolic Length 2C 4.8 cm LA Volume 36.2 cm??? 18 - 58 / 22 - 52 cm??? LA Volume Index 22.3 cm???/m??? 16 - 28 cm???/m??? M-MODE Aortic Root Diameter MM 2.4 cm LA Systolic Diameter MM 2.4 cm LA Ao Ratio MM 1.0 AV Cusp Separation MM 1.6 cm DOPPLER AV Peak Velocity 94.0 cm/s AV Peak Gradient 3.5 mmHg MV Area PHT 2.3 cm??? Mitral E Point Velocity 76.6 cm/s Mitral A Point Velocity 97.1 cm/s Mitral E to A Ratio 0.8 MV Deceleration Time 328.0 ms TR Peak Velocity 219.3 cm/s TR Peak Gradient 19.2 mmHg Right Ventricular Systolic Press 23.4 mmHg FINDINGS Left Ventricle Left ventricular ejection fraction is estimated at 55-60 %. Mildly increased septal wall thickness. Mildly increased posterior wall thickness. No obvious regional wall motion abnormalities. Left ventricular cavity size normal. Right Ventricle Normal right ventricular size and function. Right ventricular systolic pressure within normal limits. Right Atrium Mild right atrial dilatation. Prominent eustachian valve in the right atrium (normal variant). Left Atrium Mild left atrial dilatation. Mitral Valve Structurally normal mitral valve. Trace mitral regurgitation. No mitral stenosis. Aortic Valve Trileaflet aortic valve. No aortic valve stenosis or regurgitation. Tricuspid Valve Structurally normal tricuspid valve. Mild tricuspid regurgitation. No tricuspid stenosis. Pulmonic Valve Structurally normal pulmonic valve. Trace pulmonic regurgitation. No pulmonic stenosis. Pericardium No pericardial or pleural effusion. Aorta Normal size aortic root and proximal ascending aorta. CONCLUSIONS Left ventricular ejection fraction 55-60% Mildly increased left ventricular wall thickness RVSP 23 Trace mitral regurgitation Mild tricuspid regurgitation No pericardial effusion Previewed by: Dr. Walt Hernandez DO (Electronically Signed) Final Date: 08 May 2024 16:42
--- NOTE | 2024-05-08 16:45 | CA ---
Exercise Stress Test Report Name: Mary Bernard Exam Date: 05/08/2024 11:22 Exam Location: [place] [facility] Ht (in): 56 Wt (lb): 125 BSA: 1.45 Ordering Phys: Ramone Roberts DO Referring Phys: DAMIR Technologist: Manny Nagel Age: 84 Gender: F : 1940 Procedure CPT: Indications: R94.31 abn ekg ICD-10 Codes: Patient History: Abnormal EKG, pre surgery Medications: Meds past 24 hrs: Pretest Chest Pain: STRESS TEST Gold Protocol Exercise Duration (min:sec): 05:[address] Depressions (mm): Angina Score: Johnson Score: Resting HR (bpm): 92 Peak HR (bpm): 143 Resting BP (mmHg): 172 / 85 Peak BP (mmHg): / 97 MPHR: 138 Target HR: 117 % MPHR: 104 METS: 7.1 Total Dose: Peak Dose: Atropine: Double Product: BP Response: Stress Termination: Reached target heart rate Stress Symptoms: No chest pain or symptoms Stress Summary: ECG ANALYSIS Resting ECG: Stress ECG: CONCLUSIONS Patient underwent exercise stress EKG with a Gold protocol treadmill stress test. Patient exercised into Stage 2 for a total of 5 minutes and 11 seconds reaching a total of 7.1 METS. Patient's maximum heart rate was 143 which represented 103% age- predicted maximum heart rate. Stress EKG findings: At baseline patient's EKG showed normal sinus rhythm, normal axis, no significant ST or T wave abnormalities. At peak exercise, EKG showed mildly abnormal response with 0.5-1.[address] depressions in the inferior lateral leads. Conclusions: 1. Mildly abnormal stress EKG response. Consider stress test with imaging if clinically indicated. 2. Fair exercise capacity. Dr. Walt Hernandez DO (Electronically Signed) Final Date: 08 May 2024 16:44
== END | disposition home or self-care (01) ==
LOC: RADNMMAIN 10:48
PROVIDERS: ATTEND Family Medicine
DX: Z01.810 Encounter for preprocedural cardiovascular examination (principal); R94.31 Abnormal electrocardiogram [ECG] [EKG]; I08.1 Rheumatic disorders of both mitral and tricuspid valves
CPT/HCPCS: 93017; 93306

== ENCOUNTER → 2025-04-02 | Outpatient (CLI) | payer MEDICARE ==
--- NOTE | 2025-04-02 11:20 | MM ---
Reason for Exam: Clinical finding. Last mammogram was performed 3 year(s) and 3 month(s) ago. Patient History: Menarche at age 14. First Full-Term at age 26. Postmenopausal. Benign Excisional Biopsy. Maternal aunt had breast cancer, age 65. Maternal uncle had breast cancer, age 78. Risk Values: Charito 5 year model risk: 1.6%. NCI Lifetime model risk: 2.0%. Prior Study Comparison: 07/03/2014 Bilateral Screening Mammogram, [facility]. 03/23/2019 Bilateral Screening Mammogram, [facility]. 10/30/2020 Bilateral Screening Mammogram, [facility]. 11/13/2020 Right Diagnostic Mammogram, [facility]. 12/24/2021 Bilateral Diagnostic Mammogram, [facility]. Tissue Density: The breasts are heterogeneously dense, which may obscure small masses. Findings: Analyzed By CAD. A few benign-appearing round calcifications throughout the right breast are present. Benign-appearing vascular calcifications right breast is seen. No suspicious new mass or distortion in either breast. Overall Assessment: Benign, BI-RAD 2 Management: Screening Mammogram of both breasts in 1 year. Manage patient's symptoms clinically. Return to routine follow-up. Results were given to the patient verbally at the time of exam. Patient should continue monthly self-breast exams. A clinical breast exam by your physician is recommended on an annual basis. This exam should not preclude additional follow-up of suspicious palpable abnormalities. Note on Charito scores and lifetime risk: 1. A Charito score greater than 3% is considered moderate risk. If this is the case, consider specialist referral to assess eligibility for a risk reducing agent. 2. If overall lifetime risk for the development of breast cancer is 20% or higher, the patient may qualify for future screening with alternating mammogram and breast MRI. [facility], , 04/02/2025 11:17 AM. Electronically signed and approved by: Ariel Eisenberg M.D.
== END | disposition home or self-care (01) ==
LOC: RADMAMWWP 10:56
PROVIDERS: ATTEND Family Medicine
DX: R92.333 Mammographic heterogeneous density, bilateral breasts (principal); Z78.0 Asymptomatic menopausal state; N64.4 Mastodynia; Z80.3 Family history of malignant neoplasm of breast
CPT/HCPCS: 77066; G0279; 77062